=== PATIENT | female | born 1995 ===

== ENCOUNTER 2017-11-03 14:35 | Emergency (ER) | payer OTHER ==
[2017-11-03 14:57] VITALS: BP 110/61
--- NOTE | 2017-11-03 15:37 | ED ---
GI/ HPI - HPI Summary HPI Summary: 21 yr old female with the complaint of dysuria, frequency, onset two days ago. Denies fever, chills, nausea and vomiting. She has no other complaints. - History of Current Complaint Chief Complaint: [facility] Time Seen by Provider: 11/03/17 15:23 Stated Complaint: URINARY Hx Last Menstrual Period: 10/20/17 Pain Intensity: 8 - Allergy/Home Medications Allergies/Adverse Reactions: Allergies Allergy/AdvReac Type Severity Reaction Status Date / Time No Known Allergies Allergy Verified 11/03/17 14:57 Home Medications: Home Medications Pumpkin Seed Extract/Soy Germ [Azo Bladder Control Capsule] 300 mg PO DAILY [History Confirmed 11/03/17] PMH/Surg Hx/FS Hx/Imm Hx Infectious Disease History: No Infectious Disease History: Denies: Traveled Outside the [place] in Last 30 Days - Family History Known Family History: Positive: None - Social History Occupation: Employed Full-time Alcohol Use: Occasionally Substance Use Type: Reports: Marijuana Smoking Status (MU): Light Every Day Tobacco Smoker Review of Systems Constitutional: Negative Positive: burning, dysuria, frequency All Other Systems Reviewed And Are Negative: Yes Physical Exam Triage Information Reviewed: Yes Vital Signs On Initial Exam: Initial Vitals Temp Pulse Resp BP Pulse Ox 98.9 F 67 16 110/61 100 11/03/17 14:52 11/03/17 14:52 11/03/17 14:52 11/03/17 14:52 11/03/17 14:52 Vital Signs Reviewed: Yes Appearance: Positive: Well-Appearing, No Pain Distress Skin: Positive: Warm, Skin Color Reflects Adequate Perfusion Head/Face: Positive: Normal Head/Face Inspection Eyes: Positive: EOMI ENT: Positive: Normal ENT inspection Neck: Positive: Nontender Respiratory/Lung Sounds: Positive: Clear to Auscultation, Breath Sounds Present Cardiovascular: Positive: RRR. Negative: Murmur Abdomen Description: Positive: Nontender Musculoskeletal: Positive: Strength/ROM Intact Neurological: Positive: Sensory/Motor Intact, Alert, Oriented to Person Place, Time, CN Intact II-III Psychiatric: Positive: Normal - [place] Coma Scale Best Eye Response: 4 - Spontaneous Best Motor Response: 6 - Obeys Commands Best Verbal Response: 5 - Oriented Coma Scale Total: 15 Diagnostics - Vital Signs Vital Signs Temp Pulse Resp BP Pulse Ox 11/03/17 14:52 98.9 F 67 16 110/61 100 - Laboratory Lab Statement: Any lab studies that have been ordered have been reviewed, and results considered in the medical decision making process. GIGU Course/Dx - Course Course Of Treatment: 21 yr old on AZO, and with UTI symptoms. Rx with bactrim. Await culture result. - Diagnoses Provider Diagnoses: UTI (urinary tract infection) Discharge - Sign-Out/Discharge Documenting (check all that apply): Discharge/Admit/Transfer - Discharge Plan Condition: Good Disposition: HOME Prescriptions: Sulfamethox/Trimethoprim DS* [Bactrim DS 800/160 TAB*] 1 tab PO BID #10 tab Patient Education Materials: Urinary Tract Infection in Women (ED) Referrals: [facility] [place] [facility] [Outside] - 1 Day No Primary Care Phys,NOPCP [Primary Care Provider] - - Billing Disposition and Condition Condition: GOOD Disposition: HOME
--- NOTE | 2017-11-06 07:11 | UC ---
- Progress Note Progress Note: notify pt her E.coli is resistant to bactrim keflex 500mg bie (#14) eRxed Course/Dx - Diagnoses Provider Diagnoses: UTI (urinary tract infection) Discharge - Sign-Out/Discharge Documenting (check all that apply): Post-Discharge Follow Up - Discharge Plan Condition: Good Disposition: HOME Prescriptions: Cephalexin CAP* [Keflex CAP*] 500 mg PO BID #14 cap Sulfamethox/Trimethoprim DS* [Bactrim DS 800/160 TAB*] 1 tab PO BID #10 tab Patient Education Materials: Urinary Tract Infection in Women (ED) Referrals: [facility] – [place] [facility] REFERR[facility] [Outside] - 1 Day No Primary Care Phys,NOPCP [Primary Care Provider] - - Billing Disposition and Condition Condition: GOOD Disposition: HOME
== END 2017-11-03 15:58 | disposition home or self-care (01) ==
LOC: UCCORT 14:35
DX: N39.0 Urinary tract infection, site not specified (principal); B96.20 Unspecified Escherichia coli [E. coli] as the cause of diseases classified elsewhere; Z16.29 Resistance to other single specified antibiotic; F17.200 Nicotine dependence, unspecified, uncomplicated
CPT/HCPCS: 84702; 87077; 87086; 87186; 99202; G0463